=== PATIENT | male | born 1935 | race Caucasian/White ===

== ENCOUNTER 2023-01-08 13:44 | Emergency (ER) | payer OTHER, SELFPAY ==
[2023-01-08 14:20] VITALS: BP 165/62; PULSE 58; RESP 16; TEMP 36.2; O2SAT 97
--- NOTE | 2023-01-08 14:39 | ED.GENADUL_ITS ---
Discharge Plan Disposition Patient Disposition: Home Discharge Details Chief Complaint: Orthopedic Clinical Impression: Foot pain, right Primary Care Provider: [facility],[place] ED Provider: Ulises Escobar Discharge Instructions Additional Instructions: Your exam did not show any concerning findings or evidence of infection you likely have inflammation of the soft tissues or tendons follow up with your primary care provider within 1 week if pain continues if you feel more ill, have fevers or severe worsening pain return to the emergency department Medical Decision Making 87 yo male comes in with 2 months of nontraumatic right foot pain. He states he has been walking around a lot the last few months and notices pain when he walks. HE has not had any falls, no fevers, no chills, no leg swelling. HE arrives stable, caox4 in no distress. He is able to ambulate and has no limp. HE has normal foot and ankle, no deformity on visual inspection or palpation. He has full rom of the ankle and normal pulses and sensation. He has no erythema, warmth, crepitus. He localizes the discomrot to the plantar surface just anterior to the calcaneus, no palpable deformity. No pain anwhere else. Suspect tendonitis vs fasciitis. no findings to suggest fracture or infectious etiology. Offered to do an xray but he declined and feel this is reasonable given unlikely fracture. He is stable for d/c, return precautions given Differential Diagnosis Differential Diagnosis: tendonitis, fascititis HPI General Mode of arrival: ambulatory . Date/Time Provider Initiated Documentation: 01/08/23 14:27 . Limitations to Documentation: no limitations . Information obtained by: patient . History of Present Illness 87 year old M presents to the emergency department with the chief complaint of right foot pain , described as mild, Quality is described as aching, and is localized to the right and lower extremity. Patient reports no radiation. Patient started experiencing this month(s) (2) and it has been constant. Rest improves symptom(s), Movement worsens symptoms . Patient notes no other symptoms.. Patient did receive the following treatments prior to arrival, none General Stated Complaint: Orthopedic DAYSI: 4 Review of Systems All systems reviewed & are unremarkable except as noted in HPI and below Constitutional Constitutional: Denies chills, Denies fever(s) and Denies weakness Cardiovascular Cardiovascular: Denies chest pain and Denies dyspnea Respiratory Respiratory: Denies cough and Denies dyspnea Gastrointestinal Gastrointestinal: Denies abdominal pain, Denies nausea and Denies vomiting Integumentary/Breasts Skin/Breast: Denies rash Neurologic Neurologic: Denies weakness PFSH All Active Problems (Updated 01/08/23 @ 14:47 by Ulises Escobar MD) Foot pain, right (Acute) Social History Smoking/Tobacco Use Status: Never Smoking risk assessment performed?: Yes Alcohol Intake: former Substance use type: does not use Do you feel safe at home: Yes Do you feel safe in your relationship?: Yes Exam Const General: no acute distress Orientation: alert HENMT Head: normal to inspection Ears: external ears normal General nose exam: external nose normal Mouth: moist mucous membranes Eyes General: appearance normal, both eyes and all related structures Neck Neck: normal visual inspection Resp Effort & Inspection: normal respiratory effort and able to speak in complete sentences Cardio Rate: regular rate Skin General skin exam: no rashes or lesions noted Neuro General: patient alert and patient oriented x3 Extrem General: normal to inspection, full ROM and capillary refill normal Psych Mental Status: mental status grossly normal Course Vital Signs Vital signs: Vital Signs Temperature 36.2 C L 01/08/23 14:20 Pulse 58 L 01/08/23 14:20 Respiratory Rate 16 01/08/23 14:20 Blood Pressure 165/62 H 01/08/23 14:20 Pulse Oximetry 97 01/08/23 14:20 Temperature 36.2 C L 01/08/23 14:20 Temperature Source Core 01/08/23 14:20 Pulse 58 L 01/08/23 14:20 Respiratory Rate 16 01/08/23 14:20 Respiratory Effort Normal 01/08/23 14:21 Blood Pressure 165/62 H 01/08/23 14:20 Blood Pressure Position Sitting 01/08/23 14:20 Pulse Oximetry 97 01/08/23 14:20 Oxygen Delivery Method Room Air 01/08/23 14:20 Oxygen Flow Rate 0 01/08/23 14:20 Pain Level 4 01/08/23 14:22
== END 2023-01-08 14:56 | disposition home or self-care (01) ==
PROVIDERS: Emergency Provider Emergency Medicine
DX: M79.671 Pain in right foot (principal)
CPT/HCPCS: 99281